=== PATIENT | male | born 1995 | race Caucasian/White ===

== ENCOUNTER 2017-11-30 22:09 | Emergency (ER) | payer BC, OTHER ==
[2017-11-30] MEDS ORDERED: Zofran 4 MG/2 ML VIAL IV ONE (23:22)
[2017-11-30] MEDS ORDERED: Sodium Chloride 0.9% 1000 ML 1,000 ML IV STA (23:27)
[2017-11-30] MEDS ORDERED: Sodium Chloride 0.9% 1000 ML 1,000 ML ONE (23:47)
[2017-11-30] MEDS ORDERED: Zofran 4 MG/2 ML VIAL ONE (23:47)
--- NOTE | 2017-11-30 23:48 | ERPHSYRPT ---
- History of Present Illness Time Seen by Provider: 11/30/17 23:20 Historian: patient, family Exam Limitations: no limitations Patient Subjective Stated Complaint: ABDOMINAL PAIN FOR APPROX 3 DAYS; DIARRHEA X3 DAYS; PT STATES HE HAS LOST 11 LBS IN A LITTLE OVER A WEEK D/T NOT FEELING WELL. Triage Nursing Assessment: PT A&O X3; SKIN P, W, & D; AMBULATED TO ROOM PER SELF ; FAMILY AT BEDSIDE. Physician History: 22 Y/O WHITE MALE PRESENTS WITH 3 DAY H/O BILAT LOWER QUAD ABD PAIN WITH ASSOC DIARRHEA. PT HAS BEEN NAUSEATED AND HAS DECREASED APPETITE. HE STATES HE HAS LOST 11 POUNDS IN THE LAST 2 WEEKS. NO NEW MEDS OR DIET. HE HAS NOT HAD ANY ABD SURGERIES Timing/Duration: day(s) (3) Activities at Onset: none Quality: aching Abdominal Pain Onset Location: RLQ, LLQ Pain Radiation: no radiation Severity of Pain-Max: mild Severity of Pain-Current: mild Modifying Factors: Improves With: vomiting Associated Symptoms: diarrhea, loss of appetite, nausea, vomiting Previous symptoms: no prior history Allergies/Adverse Reactions: No Known Drug Allergies Allergy (Verified 11/30/17 23:29) Home Medications: Multivitamin [Daily Multivitamin] 1 each PO DAILY 10/22/12 [History] Hx Tetanus, Diphtheria Vaccination/Date Given: Yes Hx Influenza Vaccination/Date Given: Yes Hx Pneumococcal Vaccination/Date Given: No Immunizations Up to Date: No - Review of Systems Eyes: No Symptoms Ears, Nose, & Throat: No Symptoms Respiratory: No Symptoms Cardiac: No Symptoms, No Chest Pain Abdominal/Gastrointestinal: Abdominal Pain, Nausea, Vomiting, Diarrhea, Appetite Changes Genitourinary Symptoms: No Symptoms, No Dysuria, No Frequency, No Hematuria Musculoskeletal: No Symptoms Skin: No Symptoms Neurological: No Symptoms Psychological: No Symptoms Endocrine: No Symptoms Hematologic/Lymphatic: No Symptoms Immunological/Allergic: No Symptoms All Other Systems: Reviewed and Negative - Past Medical History Pertinent Past Medical History: Yes Neurological History: No Pertinent History ENT History: No Pertinent History Cardiac History: No Pertinent History Respiratory History: No Pertinent History Endocrine Medical History: No Pertinent History Musculoskeletal History: No Pertinent History GI Medical History: No Pertinent History History: No Pertinent History Psycho-Social History: Attention Deficit Disorder Male Reproductive Disorders: No Pertinent History Other Medical History: HEART MURMUR - Past Surgical History Past Surgical History: No Neuro Surgical History: No Pertinent History Cardiac: No Pertinent History Respiratory: No Pertinent History Gastrointestinal: No Pertinent History Genitourinary: No Pertinent History Musculoskeletal: No Pertinent History Male Surgical History: No Pertinent History Other Surgical History: TONSILECTOMY - Social History Smoking Status: Never smoker Exposure to second hand smoke: No Drug Use: none Patient Lives Alone: No Significant Family History: no pertinent family hx - Nursing Vital Signs Nursing Vital Signs: Initial Vital Signs Temperature 98.1 F 11/30/17 23:21 Pulse Rate 70 11/30/17 23:21 Respiratory Rate 16 11/30/17 23:21 Blood Pressure 133/80 11/30/17 23:21 O2 Sat by Pulse Oximetry 100 11/30/17 23:21 Pain Scale Pain Intensity 6 - Physical Exam General Appearance: mild distress, alert, No cachetic, No obese, No thin Eye Exam: PERRL/EOMI, eyes nml inspection Ears, Nose, Throat Exam: normal ENT inspection Neck Exam: normal inspection, non-tender, supple, full range of motion Respiratory Exam: normal breath sounds, lungs clear, airway intact, No chest tenderness, No respiratory distress, No diminished breath sounds, No accessory muscle use, No wheezing, No stridor Cardiovascular Exam: regular rate/rhythm, normal heart sounds, normal peripheral pulses Gastrointestinal/Abdomen Exam: soft, normal bowel sounds, tenderness (MILD DIFFUSE), guarding, No rebound Rectal Exam: deferred Back Exam: normal inspection, normal range of motion Extremity Exam: normal inspection, normal range of motion, pelvis stable Neurologic Exam: alert, oriented x 3, cooperative, mlt II-XII nml as tested, normal mood/affect, nml cerebellar function, nml station & gait Skin Exam: normal color, warm, dry Lymphatic Exam: No adenopathy SpO2 Interpretation: normal SpO2: 100 Oxygen Delivery: Room Air - Course Nursing assessment & vital signs reviewed: Yes Ordered Tests: Active Orders 24 hr Category Date Time Status ABDOMEN AND PELVIS W CONTRAST [CT] Stat Exams 11/30/17 23:24 Taken AMYLASE Stat Lab 11/30/17 21:55 Completed CBC W DIFF Stat Lab 11/30/17 21:55 Completed CMP Stat Lab 11/30/17 21:55 Completed LIPASE Stat Lab 11/30/17 21:55 Completed UA W/RFX UR CULTURE Stat Lab 11/30/17 21:55 Completed Medication Summary Discontinued Medications Generic Name Dose Route Start Last Admin Trade Name Patric PRN Reason Stop Dose Admin Ciprofloxacin 500 mg 12/01/17 02:08 Cipro 500 Mg PO 12/01/17 02:09 STAT ONE Sodium Chloride 1,000 mls @ 999 mls/hr 11/30/17 23:27 12/01/17 02:05 Sodium Chloride 0.9% 1000 Ml IV 12/01/17 00:27 Infused .Q1H1M STA Infusion Sodium Chloride Confirm 11/30/17 23:47 Sodium Chloride 0.9% 1000 Ml Administered 11/30/17 23:48 Dose 1,000 mls @ ud .ROUTE .STK-MED ONE Ondansetron HCl 4 mg 11/30/17 23:22 11/30/17 23:48 Zofran 4 Mg/2 Ml Vial IV 11/30/17 23:23 4 mg STAT ONE Administration Ondansetron HCl Confirm 11/30/17 23:47 Zofran 4 Mg/2 Ml Vial Administered 11/30/17 23:48 Dose 4 mg .ROUTE .STK-MED ONE Lab/Rad Data: Laboratory Result Diagrams 11/30/17 21:55 11/30/17 21:55 Laboratory Results 11/30/17 11/30/17 11/30/17 Range/Units 21:55 21:55 21:55 WBC 7.6 (4.0-10.5) K/mm3 RBC 5.12 (4.1-5.6) M/mm3 Hgb 15.4 (12.5-18.0) gm/dl Hct 43.0 (42-50) % MCV 84.0 (78-100) fl MCH 30.1 (26-32) pg MCHC 35.8 (32-36) g/dl RDW 12.7 (11.5-14.0) % Plt Count 170 (150-450) K/mm3 MPV 11.5 H (6-9.5) fl Gran % 62.0 (36.0-66.0) % Eos # (Auto) 0.03 (0-0.5) Absolute Lymphs (auto) 2.12 (1.0-4.6) Absolute Monos (auto) 0.73 (0.0-1.3) Lymphocytes % 27.9 (24.0-44.0) % Monocytes % 9.6 (0.0-12.0) % Eosinophils % 0.4 (0.00-5.0) % Basophils % 0.1 (0.0-0.4) % Absolute Granulocytes 4.71 (1.4-6.9) Basophils # 0.01 (0-0.4) Sodium 142 (137-145) mmol/L Potassium 3.6 (3.5-5.1) mmol/L Chloride 103 (98-107) mmol/L Carbon Dioxide 27 (22-30) mmol/L Anion Gap 14.9 (5-15) MEQ/L BUN 17 (9-20) mg/dL Creatinine 1.03 (0.66-1.25) mg/dL Estimated GFR > 60.0 ML/MIN Glucose 96 (74-106) mg/dL Calcium 9.8 (8.4-10.2) mg/dL Total Bilirubin 0.70 (0.2-1.3) mg/dL AST 25 (17-59) U/L ALT 16 (0-50) U/L Alkaline Phosphatase 76 (38-126) U/L Serum Total Protein 7.9 (6.3-8.2) g/dL Albumin 5.0 (3.5-5.0) g/dL Amylase 93 (30-110) U/L Lipase 49 (23-300) U/L Ur Collection Type VOID Urine Color YELLOW (YELLOW) Urine Appearance HAZY (CLEAR) Urine pH 7.0 (5-6) Ur Specific [place] 1.015 (1.005-1.025) Urine Protein NEGATIVE (Negative) Urine Ketones NEGATIVE (NEGATIVE) Urine Blood NEGATIVE (0-5) Miguel Angel/ul Urine Nitrite NEGATIVE (NEGATIVE) Urine Bilirubin NEGATIVE (NEGATIVE) Urine Urobilinogen NORMAL (0-1) mg/dL Ur Leukocyte Esterase NEGATIVE (NEGATIVE) Urine Culture Reflexed NO (NO) Urine Glucose NEGATIVE (NEGATIVE) mg/dL Specimen Received 12/01/170 - Progress Progress: unchanged, re-examined Progress Note: 12/01/17 02:10 D/W PT AND FAMILY RE: DX AND TX PLAN. HE WILL FOLLOW UP WITH PCP Counseled pt/family regarding: lab results, diagnosis, need for follow-up, rad results - Departure Time of Disposition: 02:10 Departure Disposition: Home Clinical Impression: Colitis Condition: Stable Critical Care Time: No Referrals: CHARISMA MARTÍNEZ MD [Primary Care Provider] - Additional Instructions: DRINK PLENTY OF FLUIDS. FOLLOW UP WITH PRIMARY DOCTOR FOR FURTHER MANAGEMENT. Prescriptions: Hydrocodone/APAP 5/325 [Theresa 5/325 mg] 1 each PO Q6H PRN PRN #10 tablet MDD 4 PRN Reason: Pain Ciprofloxacin [Cipro 500 MG] 500 mg PO BID #14 tablet Metronidazole 500 mg [Flagyl 500 MG] 500 mg PO TID #21 tablet
[2017-12-01 00:13] LABS: BASOPHIL % 0.1 % (0.0-0.4); Basophil (Absolute #) 0.01 (0-0.4); Eosinophil % 0.4 % (0.00-5.0); Eosinophil (Absolute #) 0.03 (0-0.5); Granulocyte Absolute (ANC) 4.71 (1.4-6.9); Hemoglobin 15.4 gm/dl (12.5-18.0); Lymphocyte (Absolute #) 2.12 (1.0-4.6); Lymphocytes % 27.9 % (24.0-44.0); Mean Corpuscular Hemoglobin 30.1 pg (26-32); Mean Corpuscular Hgb Concent. 35.8 g/dl (32-36); Mean Platelet Volume 11.5 fl (6-9.5); Monocyte (Absolute #) 0.73 (0.0-1.3); Monocytes % 9.6 % (0.0-12.0); Platelet Count 170 K/mm3 (150-450); Red Blood Count 5.12 M/mm3 (4.1-5.6); Red Cell Distribution Width 12.7 % (11.5-14.0); White Blood Count 7.6 K/mm3 (4.0-10.5)
[2017-12-01 00:31] LABS: Appearance HAZY (CLEAR); Glucose NEGATIVE (NEGATIVE); Ketones NEGATIVE (NEGATIVE); Leukocyte Esterase NEGATIVE (NEGATIVE); Nitrite NEGATIVE (NEGATIVE); Protein,Urine Dip NEGATIVE (Negative); Specific Gravity 1.015 (1.005-1.025)
[2017-12-01 00:32] LABS: Bilirubin NEGATIVE (NEGATIVE); Blood NEGATIVE Ery/ul (0-5); Urobilinogen NORMAL mg/dL (0-1)
[2017-12-01 00:35] LABS: ALKALINE PHOSPHATASE 76 U/L (38-126); AMYLASE 93 U/L (30-110); ANION GAP 14.9 MEQ/L (5-15); BLOOD UREA NITROGEN 17 mg/dL (9-20); CHLORIDE 103 mmol/L (98-107); Calcium 9.8 mg/dL (8.4-10.2); Carbon Dioxide 27 mmol/L (22-30); Creatinine 1 1.03 mg/dL (0.66-1.25); Glucose 96 mg/dL (74-106); LIPASE 49 U/L (23-300); Potassium 3.6 mmol/L (3.5-5.1); SGOT/AST 25 U/L (17-59); SGPT/ALT 16 U/L (0-50); SODIUM 142 mmol/L (137-145); Total Protein 7.9 g/dL (6.3-8.2)
[2017-12-01] MEDS ORDERED: Cipro 500 MG PO ONE (02:08)
[2017-12-01] MEDS ORDERED: Flagyl 500 MG PO ONE (02:08)
[2017-12-01] MEDS ORDERED: Cipro 500 MG ONE (02:14)
[2017-12-01] MEDS ORDERED: Flagyl 500 MG ONE (02:14)
[2017-12-01 02:26] VITALS: BP 123/77; PULSE 78; O2SAT 99
--- NOTE | 2017-12-01 08:41 | XRAY ---
Indication: Abdominal pain and diarrhea. Multiple contiguous axial images obtained through the abdomen and pelvis using 80 cc Isovue 370 contrast only. Comparison: None Lung bases are clear. Heart is not enlarged. Noncontrasted stomach and bowel loops appear nonobstructed. Normal appendix. No free fluid/air. Gallbladder contracted without gallstones or abnormal biliary distention. Spleen is enlarged measuring 14.5 cm in greatest axial dimension. Remaining liver, gallbladder, pancreas, spleen, adrenal glands, kidneys, ureters, bladder, and aorta appear unremarkable. No pathologic retroperitoneal lymphadenopathy. Osseous structures intact. No ventral or inguinal hernias. Impression: 1. Splenomegaly. 2. Remaining CT abdomen/pelvis with contrast exam is negative. Comment: Preliminary interpretation was made by [facility]. No critical discrepancy. CT DI 12.42
== END 2017-12-01 02:40 | disposition home or self-care (01) ==
LOC: ED 22:09
DX: K52.9 Noninfective gastroenteritis and colitis, unspecified (principal); R10.31 Right lower quadrant pain; R10.32 Left lower quadrant pain; R11.2 Nausea with vomiting, unspecified; R19.7 Diarrhea, unspecified
CPT/HCPCS: 36415; 74177; 80053; 81002; 82150; 83690; 85025; 96360; 96374; 99284; J2405; A9270-GY